=== PATIENT | male | born 1955 | race American Indian/Alaskan Native ===

== ENCOUNTER 2016-12-02 18:37 | Emergency (ER) | payer SELFPAY ==
[~2016-12-02] VITALS: Ht 182.9 cm; Wt 111.1 kg
--- NOTE | 2016-12-02 19:12 | ED Upper Extremity ---
General Chief Complaint: Upper Extremity Stated Complaint: RT HAND THUMB PAIN/SWELLING Nursing Triage Note: RIGHT THUMB/INDEX FINGER PAIN Nursing Sepsis Screen: No Definite Risk Source: patient Exam Limitations: no limitations History of Present Illness Time seen by provider: 19:07 Initial Comments To ER with a painful right thumb. This began last night. He been playing the guitar using a pick and his thumb to pick at it or strains. When he got home from playing the guitar at the bar, he pulled a hangnail off. Today upon awakening the finger is red, very tender and has a red streak going up the forearm. Onset: yesterday Severity: moderate Pain/Injury Location: right thumb Allergies and Home Medications Allergies Coded Allergies: Penicillins (Verified Allergy, Unknown, 12/02/16) Constitutional: see HPI EENTM: see HPI Respiratory: no symptoms reported Cardiovascular: no symptoms reported Genitourinary: no symptoms reported Musculoskeletal: no symptoms reported Skin: no symptoms reported Psychiatric/Neurological: No Symptoms Reported Past Xywlqed-Rpyaff-Trtakq Hx Patient Social History Alcohol Use: Denies Use Recreational Drug Use: No Smoking Status: Current Everyday Smoker Type Used: Cigarettes 2nd Hand Smoke Exposure: Yes Recent Foreign Travel: No Contact w/Someone Who Travel: No Recent Infectious Disease Expo: No Recent Hopitalizations: No Immunizations Up To Date Tetanus Booster (TDap): Less than 5yrs PED Vaccines UTD: Yes Seasonal Allergies Seasonal Allergies: No Respiratory Respiratory Disorders: COPD Cardiovascular Cardiac Disorders: Hypertension Endocrine Endocrine Disorders: Diabetes, Non-Insulin dep Physical Exam Vital Signs Vital Sign - Last 12Hours 12/02/16 19:02 Temp 97.9 Pulse 110 Resp 18 B/P (MAP) 148/93 Pulse Ox 96 O2 Delivery Room Air Capillary Refill : Less Than 3 Seconds General Appearance: WD/WN, no apparent distress HEENT: PERRL/EOMI, normal ENT inspection Neck: non-tender, full range of motion Respiratory: no respiratory distress, no accessory muscle use Gastrointestinal: normal bowel sounds, non tender, soft Shoulder: normal inspection, non-tender Elbow/Forearm: Right (lymphangitis extending up the volar aspect of the forearm terminating about 4 cm distal to the antecubital fossa) Wrist: Yes normal inspection, Yes non-tender Hand: Right, limited ROM (there is no fluctuance to suggest a paronychia. There is tenderness at the base of the fingernail where he removed hangnail last night. The thumb is erythematous but without much swelling.) Neurologic/Psychiatric: alert, normal mood/affect, oriented x 3 Skin: normal color, warm/dry Progress/Results/Core Measures Results/Orders Vital Signs/I&O Vital Sign - Last 12Hours 12/02/16 19:02 Temp 97.9 Pulse 110 Resp 18 B/P (MAP) 148/93 Pulse Ox 96 O2 Delivery Room Air Blood Pressure Mean: 111 Departure Impression Impression: Primary Impression: Soft tissue infection Disposition: 01 HOME, SELF-CARE Condition: Stable Departure-Patient Inst. Decision time for Depature: 19:09 Referrals: NO,LOCAL PHYSICIAN (PCP/Family) Primary Care Physician Patient Instructions: NO INSTRUCTIONS GIVEN Add. Discharge Instructions: 1. Soak the hand in warm water couple times a day for about 10-15 minutes 2. Take the 2 antibiotics as directed. They're both on the $4 list at [facility]. All discharge instructions reviewed with patient and/or family. Voiced understanding. Scripts Cephalexin (Keflex) 500 Mg Capsule 500 MG PO Q6H, #28 CAP Prov: LORETTA PRATER APRN 12/02/16 Sulfamethoxazole/Trimethoprim (Bactrim Ds Tablet) 1 Each Tablet 1 EACH PO BID, #14 TAB Prov: LORETTA PRATER APRN 12/02/16 LORETTA PRATER APRN Dec 02, 2016 19:12
[2016-12-02] MEDS ORDERED: CEPH-507 PO (19:13)
[2016-12-02] MEDS ORDERED: SULF1TAB35 PO (19:13)
[2016-12-02] MEDS ORDERED: KETOROLAC 60 MG/2 ML VIAL IM ONE (19:15)
[2016-12-02] MEDS ORDERED: TRIM/SULFAMETH 160/800 (SEPTRA DS) TAB PO ONE (19:15)
[2016-12-02] MEDS ORDERED: cefTRIAXone 1 GM (ROCEPHIN) VIAL IM ONE (19:15)
[2016-12-02] MEDS ORDERED: KETOROLAC 30 MG/ML VIAL IVP ONE (19:15)
[2016-12-02] MEDS ORDERED: LIDOCAINE 1% INJ 20 ML (XYLOCAINE) VIAL INJ ONE (19:15)
[2016-12-02 19:20] VITALS: BP 148/93
--- OUTSIDE RECORDS SUMMARY | 2016-12-03 09:24 | XMS REPORT | Continuity of Care Document ---
Author Author [facility] Address Unknown Phone Unavailable Allergies Active Description Code Type Severity Reaction Onset Reported/Identified Relationship to Patient Clinical Status Yes Penicillins Drug Allergy N/A N/A 08/24/2009 Medications Problems Date Dx Coded Attending Type Code Diagnosis Diagnosed By 08/24/2009 MIROSLAVA JOHNSON MD 401.1 HYPERTENSION, BENIGN ESSENTIAL 08/24/2009 MIROSLAVA JOHNSON MD 782.3 Edema 08/24/2009 MIROSLAVA JOHNSON MD V76.44 Prostate Screening 08/24/2009 SHERIN OLIVEIRA APRN 401.1 HYPERTENSION, BENIGN ESSENTIAL 08/24/2009 SHERIN OLIVEIRA APRN 782.3 Edema 08/24/2009 SHERIN OLIVEIRA APRN V76.44 Prostate Screening 08/24/2009 SHERIN OLIVEIRA APRN 401.1 HYPERTENSION, BENIGN ESSENTIAL 08/24/2009 SHERIN OLIVEIRA APRN 782.3 Edema 08/24/2009 SHERIN OLIVEIRA APRN V76.44 Prostate Screening 02/14/2011 MIROSLAVA JOHNSON MD 790.29 Other Abnormal Glucose 02/14/2011 SHERIN OLIVEIRA APRN 790.29 Other Abnormal Glucose 02/14/2011 SHERIN OLIVEIRA APRN 790.29 Other Abnormal Glucose 04/25/2011 MIROSLAVA JOHNSON MD 305.1 NONDEPENDENT TOBACCO USE DISORDER 04/25/2011 MIROSLAVA JOHNSON MD 466.0 Acute Bronchitis 04/25/2011 SHERIN OLIVEIRA APRN 305.1 NONDEPENDENT TOBACCO USE DISORDER 04/25/2011 SHERIN OLIVEIRA APRN 466.0 Acute Bronchitis 04/25/2011 SHERIN OLIVEIRA APRN 305.1 NONDEPENDENT TOBACCO USE DISORDER 04/25/2011 SHERIN OLIVEIRA APRN 466.0 Acute Bronchitis 06/19/2011 MIROSLAVA JOHNSON MD 372.30 Conjunctivitis Unspecified 06/19/2011 SHERIN OLIVEIRA APRN 372.30 Conjunctivitis Unspecified 06/19/2011 SHERIN OLIVEIRA APRN 372.30 Conjunctivitis Unspecified 07/05/2011 MIROSLAVA JOHNSON MD 110.5 DERMATOPHYTOSIS OF THE BODY 07/05/2011 MIROSLAVA JOHNSON MD 250.00 DIABETES MELLITUS WITHOUT MENTION OF COMPLICATION TYPE II OR UNSPECIFIED TYPE NOT STATED UNCONTROLLED 07/05/2011 MIROSLAVA JOHNSON MD 311 DEPRESSIVE DISORDER NOT ELSEWHERE CLASSIFIED 07/05/2011 MIROSLAVA JOHNSON MD 443.9 PERIPHERAL VASCULAR DISEASE UNSPECIFIED 07/05/2011 SHERIN OLIVEIRA APRN 110.5 DERMATOPHYTOSIS OF THE BODY 07/05/2011 SHERIN OLIVEIRA APRN 250.00 DIABETES MELLITUS WITHOUT MENTION OF COMPLICATION TYPE II OR UNSPECIFIED TYPE NOT STATED UNCONTROLLED 07/05/2011 SHERIN OLIVEIRA APRN 311 DEPRESSIVE DISORDER NOT ELSEWHERE CLASSIFIED 07/05/2011 SHERIN OLIVEIRA APRN 443.9 PERIPHERAL VASCULAR DISEASE UNSPECIFIED 07/05/2011 SHERIN OLIVEIRA APRN 110.5 DERMATOPHYTOSIS OF THE BODY 07/05/2011 SHERIN OLIVEIRA APRN 250.00 DIABETES MELLITUS WITHOUT MENTION OF COMPLICATION TYPE II OR UNSPECIFIED TYPE NOT STATED UNCONTROLLED 07/05/2011 SHERIN OLIVEIRA APRN 311 DEPRESSIVE DISORDER NOT ELSEWHERE CLASSIFIED 07/05/2011 SHERIN OLIVEIRA APRN 443.9 PERIPHERAL VASCULAR DISEASE UNSPECIFIED 08/19/2011 MIROSLAVA JOHNSON MD 462 ACUTE PHARYNGITIS 08/19/2011 SHERIN OLIVEIRA APRN 462 ACUTE PHARYNGITIS 08/19/2011 SHERIN OLIVEIRA APRN 462 ACUTE PHARYNGITIS 05/18/2013 MIROSLAVA JOHNSON MD 782.1 RASH 05/18/2013 SHERIN OLIVEIRA APRN 782.1 RASH 05/18/2013 SHERIN OLIVEIRA APRN 782.1 RASH 07/06/2013 SHERIN OLIVEIRA APRN 461.9 SINUSITIS ACUTE 07/06/2013 SHERIN OLIVEIRA APRN 724.2 BACK PAIN, LOWER 07/06/2013 SHERIN OLIVEIRA APRN 729.5 PAIN- LEG 12/01/2014 Ot 729.5 12/01/2014 Ot 785.9 12/07/2014 Ot 729.5 12/07/2014 Ot 785.9 03/22/2015 HUSSAIN REILLY MD Ot 443.9 03/22/2015 Ot 729.5 03/22/2015 Ot 785.9 03/22/2015 MELBA MOORE, HUSSAIN Balbuena Ot 443.9 Procedures Code Description [place] [address] ROUTINE VENIPUNCTURE 06/01/2013 15884 CMP 06/01/2013 23686 A1C (RML) 2012 Results Encounters ACCT No. Visit Date/Time Discharge Status Pt. Type Provider Facility Loc./Unit Complaint [id number] 07/06/2013 08:54:00 07/06/2013 23: 59:59 CLS Outpatient SHERIN OLIVEIRA APRN [id number] 06/01/2013 11:30:00 06/01/2013 23: 59:59 CLS Outpatient SHERIN OLIVEIRA APRN [id number] 05/18/2013 11:05:00 05/18/2013 23: 59:59 CLS Outpatient ALEX MOORE, MIROSLAVA
== END 2016-12-02 19:20 | disposition home or self-care (01) ==
LOC: EDUNIT# 18:37 → ER 18:38
DX: L08.9 Local infection of the skin and subcutaneous tissue, unspecified (principal); J44.9 Chronic obstructive pulmonary disease, unspecified; I10 Essential (primary) hypertension; E11.9 Type 2 diabetes mellitus without complications; F17.210 Nicotine dependence, cigarettes, uncomplicated; Z88.0 Allergy status to penicillin
CPT/HCPCS: 96372; 99282

== ENCOUNTER 2020-12-29 20:15 | Emergency (ER) | payer SELFPAY ==
[~2020-12-29] VITALS: Ht 180.3 cm; Wt 70.0 kg
[~2020-12-29 20:15] MED LIST: CEPH-507 PO; SULF1TAB38 PO
[2020-12-29 23:31] VITALS: BP 146/105
== END 2020-12-29 20:46 | disposition home or self-care (01) ==
LOC: EDUNIT# 20:15 → ER 20:17
DX: R53.1 Weakness (principal); R42 Dizziness and giddiness
CPT/HCPCS: 99281